=== PATIENT | male | born 1970 | race Hispanic/Latino ===

== ENCOUNTER 2022-08-02 06:26 | Day surgery (SDC) | payer MEDICARE ==
[2022-07-31 10:12] LABS: EOSINOPHILS % (AUTO) 11.2 % (0.0-8.0); HEMATOCRIT 43.8 % (42-54); LYMPHOCYTES % (AUTO) 26.8 % (21.0-51.0); MEAN CORPUSCULAR HEMOGLOBIN 28.9 pg (27.0-33.0); MEAN CORPUSCULAR HGB CONC 33.1 g/dL (32.0-36.0); MEAN CORPUSCULAR VOLUME 87.4 fL (79-99); MONOCYTES % (AUTO) 8.1 % (3.0-13.0); NEUTROPHILS % (AUTO) 52.5 % (40.0-77.0); PLATELET COUNT (AUTO) 348 K/uL (130-400); RED BLOOD CELL COUNT(AUTO) 5.01 MIL/uL (4.50-6.20); RED CELL DISTRIBUTION WIDTH 13.2 % (11.0-15.5)
[2022-07-31 10:39] LABS: ALBUMIN 4.2 g/dL (3.5-5.0); CARBON DIOXIDE 28 mmol/L (21-32); CHLORIDE 104 mmol/L (101-111); CREATININE 1.2 mg/dL (0.5-1.5); GLOMERULAR FILTR. RATE CALC 67 mL/min (>60); GLUCOSE,RANDOM 108 mg/dL (70-105); POTASSIUM 3.7 mmol/L (3.5-5.1); SODIUM SERUM 139 mmol/L (136-145); UREA NITROGEN, BLOOD 12 mg/dL (7-18)
[2022-07-31 10:40] LABS: CRP QUANTITATIVE < 2.00 mg/L (0.00-9.0)
[2022-08-01 10:46] VITALS: BP 116/75
[2022-08-02] VITALS (17 sets, daily range): BP systolic 94–123; BP diastolic 55–74
[~2022-08-02] VITALS: Ht 182.9 cm; Wt 113.5 kg
[~2022-08-02 06:26] MED LIST: AMLO-258 PO; CEFAZOLIN SODIUM 2 GM VIAL IVPB SCH; CLON0.1T PO; DICL50TA7 PO; FISH1CAP65 PO; HYDR-4154 PO; ICOS1CAP PO; IRBE300T18 PO; LEVE750T10 PO; LORA10TA7 PO; MONT-39 PO; MULT-1289 PO; NITR0.4T50 SL; ONDA-105 PO; ROSU40TA21 PO
[2022-08-02] MEDS ORDERED: BUPIVACAINE/PF 0.5% 30ML VIAL ONE (06:41)
[2022-08-02] MEDS ORDERED: DEXAMETHASONE SOD PHOSPHATE 10MG/ML 1ML VIAL ONE (06:53)
[2022-08-02] MEDS ORDERED: PROPOFOL 10 MG/ML 20ML VIAL IV ONE ×2 (06:53→08:11)
[2022-08-02] MEDS ORDERED: LIDOCAINE PF 100MG/5ML (2%) SYRINGE 5ML ONE (06:53)
[2022-08-02] MEDS ORDERED: GLYCOPYRROLATE 1 MG/5 ML SYRINGE ONE (06:53)
[2022-08-02] MEDS ORDERED: SUCCINYLCHOLINE CHLORIDE 20 MG/ML 10 ML VIAL ONE (06:53)
[2022-08-02] MEDS ORDERED: MIDAZOLAM HCL 1 MG/ML 2ML VIAL ONE ×2 (06:54→07:33)
[2022-08-02] MEDS ORDERED: FENTANYL CITRATE PF 50 MCG/1 ML 2ML VIAL ONE ×2 (06:55→08:37)
[2022-08-02] MEDS ORDERED: ONDANSETRON 4MG INJ ONE ×2 (06:55→09:46)
[2022-08-02] MEDS ORDERED: ROCURONIUM 10MG/1ML SYR 10 MG/ML ML ONE (06:55)
[2022-08-02] MEDS ORDERED: NEOSTIGMINE 5MG/5ML SYR IV ONE (06:55)
[2022-08-02] MEDS ORDERED: LACTATED RINGERS 1000ML 1,000 ML IV ONE (07:06)
[2022-08-02] MEDS ORDERED: ACET-2079 PO (09:29)
[2022-08-02] MEDS ORDERED: MEPERIDINE-PF 25 MG/ML SYG ONE (09:46)
== END 2022-08-02 11:10 | disposition home or self-care (01) ==
LOC: DAH 06:26
PROVIDERS: ATTEND Student in an Organized Health Care Education/Training Program
DX: S83.232A Complex tear of medial meniscus, current injury, left knee, initial encounter (principal); Z20.822 Contact with and (suspected) exposure to COVID-19; M22.42 Chondromalacia patellae, left knee; I10 Essential (primary) hypertension; F31.9 Bipolar disorder, unspecified; K21.9 Gastro-esophageal reflux disease without esophagitis; E78.5 Hyperlipidemia, unspecified; E78.00 Pure hypercholesterolemia, unspecified; Z86.73 Personal history of transient ischemic attack (TIA), and cerebral infarction without residual deficits; Z79.01 Long term (current) use of anticoagulants; Z79.899 Other long term (current) drug therapy; W19.XXXA Unspecified fall, initial encounter; Y93.89 Activity, other specified; Y92.89 Other specified places as the place of occurrence of the external cause
CPT/HCPCS: 82040; 80048; 85025; 84134; 86140; 87426; 36415; 29881; A4663; A4649; J7120; J3010 ×2; J3490 ×2; J1100; J2710; J0330; J2001; J2250 ×2; J2704 ×2; J2405 ×2; J2175; J0690; A6223; A5120; A4215; A4223; A4222; A4221; A6450

== ENCOUNTER → 2024-11-01 | Outpatient (CLI) | payer OTHER ==
[~2024-11-01] MED LIST changes: +ACET-2079 PO; -CEFAZOLIN SODIUM 2 GM VIAL IVPB SCH; -HYDR-4154 PO; +HYDR50TA37 PO; -IRBE300T18 PO; +IRBE300T26 PO; -ROSU40TA21 PO; +ROSU40TA88 PO
[2024-11-01 11:21] LABS: CREATININE 1.1 mg/dL (0.5-1.3)
== END | disposition home or self-care (01) ==
LOC: LAB 10:25
PROVIDERS: ATTEND Student in an Organized Health Care Education/Training Program
DX: D17.21 Benign lipomatous neoplasm of skin and subcutaneous tissue of right arm (principal); R10.32 Left lower quadrant pain
CPT/HCPCS: 36415; 82565; 84520